=== PATIENT | female | born 1965 | race Caucasian/White ===

== ENCOUNTER → 2017-08-24 | Outpatient (CLI) | payer OTHER ==
[2015-10-25 17:53] VITALS: BP 123/75
[2017-08-24 11:38] LABS: CREATININE,URINE 60.53 mg/dL (29-226)
[2017-08-24 12:01] LABS: CREATININE 24 HOUR,URINE 1.3 g/24 hr (0.67-1.59)
== END ==
LOC: LAB 10:10
DX: I34.1 Nonrheumatic mitral (valve) prolapse (principal); I10 Essential (primary) hypertension; E21.3 Hyperparathyroidism, unspecified; R31.9 Hematuria, unspecified; E78.4 Other hyperlipidemia; Z87.442 Personal history of urinary calculi
CPT/HCPCS: 81050; 82340; 82507; 82570; 83945; 84105; 84300

== ENCOUNTER → 2017-09-25 | Outpatient (CLI) | payer BC ==
[2015-10-25 17:53] VITALS: BP 123/75
[2017-09-25 14:13] LABS: BLOOD UREA NITROGEN 16 mg/dL (7-18); CALCIUM 10.3 mg/dL (8.5-10.1); CARBON DIOXIDE 27.9 mmol/L (21-32); CHLORIDE 106 mmol/L (98-107); CREATININE 1.29 mg/dL (0.55-1.02); SODIUM 143 mmol/L (136-145); eGFR BLACK RACES 56 (>60); eGFR NON BLACK RACES 46 (>60)
[2017-09-25 14:33] LABS: BASOPHILS % (AUTO) 0.4 % (0.2-1.0); EOSINOPHILS # (AUTO) 0.1 x10^3/uL (0.0-0.2); EOSINOPHILS % (AUTO) 1.5 % (0.9-2.9); HEMATOCRIT 38.8 % (36.0-47.0); HEMOGLOBIN 13.5 g/dL (12.0-16.0); LYMPHOCYTES # (AUTO) 2.3 X10^3/uL (1.3-2.9); LYMPHOCYTES % (AUTO) 30.1 % (21.0-51.0); MEAN CORPUSCULAR HGB CONC 34.8 g/dL (33.0-35.0); MEAN CORPUSCULAR VOLUME 86.4 fL (80.0-100.0); MEAN PLATELET VOLUME 8.4 fL (7.4-11.0); MONOCYTES # (AUTO) 0.5 x10^3/uL (0.3-0.8); MONOCYTES % (AUTO) 6.6 % (0.0-13.0); NEUTROPHILS # (AUTO) 4.8 x10^3/uL (2.2-4.8); NEUTROPHILS % (AUTO) 61.4 % (42.0-75.0); PLATELET COUNT 287 X10^3/uL (150.0-450.0); RED CELL DISTRIBUTION WIDTH 12.2 % (11.6-16.5); WHITE BLOOD COUNT 7.8 X10^3/uL (3.6-10.0)
--- NOTE | 2017-09-25 15:53 | CT ---
HISTORY: Calculus of kidney, hematuria, previous lithotripsy Study: CT abdomen and pelvis with and without contrast Comparison: 09/2015 Technique: Multiple axial images of the abdomen and pelvis were obtained with IV contrast. Oral contrast was no t administered. Dose reduction techniques including Automated Exposure Control (AEC) and adjustment o f mA and kV were utilized. Findings: The visualized portions of the lung bases are clear. There is atrophy of the right kidney. Delayed i mages demonstrate contrast excretion into the right ureter there is some retained renal function. The re are 2 small left renal lesions that are indeterminate demonstrating density greater than simple cy sts as well as some mild enhancement on the delayed images. There lesion measures 9 mm, the smaller m easures 6.5 mm. Previous left subcapsular hematoma has resolved. No renal calculi or hydronephrosis. The spleen, pancreas, liver, and adrenal glands are unremarkable. Normal gallbladder. No free intraperitoneal air. No evidence of intestinal obstruction or inflammation. The appendix is n ormal. No free fluid is identified. The soft tissues and osseous structures are unremarkable. The vascular structures are within normal l imits for age. No pathologically enlarged lymph nodes are identified. No stones or mass seen within t he urinary bladder. IMPRESSION: 1. Two subcentimeter left renal lesions as described with density greater than simple cysts as well a s some mild enhancement on the delayed images. Findings could represent complex cysts or sequela of p revious lithotripsy. Solid masses are not completely excluded and could be further evaluated with con trast-enhanced MRI. Previous left subcapsular hematoma is resolved. 2. Atrophy of the right kidney with resolution of previous subcapsular hematoma. Contrast excretion i s seen within the right renal collecting system suggesting some preserved renal function. Reported By:
== END ==
LOC: RAD 13:20
PROVIDERS: ATTEND Internal Medicine Nephrology
DX: I34.1 Nonrheumatic mitral (valve) prolapse (principal); I10 Essential (primary) hypertension; E21.3 Hyperparathyroidism, unspecified; R31.9 Hematuria, unspecified; E78.4 Other hyperlipidemia; Z87.442 Personal history of urinary calculi
CPT/HCPCS: 36415; 74178; 80048; 85025